=== PATIENT | male | born 1970 | race Hispanic/Latino ===

== ENCOUNTER 2021-04-25 18:56 | Inpatient (IN) | payer BC, OTHER ==
[~2021-04-25 18:56] MED LIST: Iopamidol-370 76% 500 ML 1 ML ONE
[2021-04-25 19:31] LABS: #Monocytes 1.4 thou/uL (0.11-0.59); #Neutrophils 9.1 thou/uL (1.40-6.50); %Basophils 0.1 % (0.0-1.0); %Eosinophils 0.1 % (0.0-10.0); %Lymphocytes 8.7 % (21.0-51.0); %Neutrophils 79.1 % (42.0-75.0); Hemoglobin 16.6 g/dL (14.0-18.0); Mean Corpuscular Hemoglobin 33.3 pg (27.0-31.0); Mean Corpuscular Volume 98.1 fL (78.0-98.0); Mean Platelet Volume 9.4 fL (7.4-10.4); Platelet Count 106 thou/uL (130-400); RBC Distribution Width 12.6 % (11.5-14.5); Red Blood Cell (RBC) Count 4.97 mill/uL (4.70-6.10); White Blood Cell (WBC) Count 11.5 thou/uL (4.8-10.8)
[2021-04-25 19:48] LABS: ALT (SGPT) 75 U/L (8-55); AST (SGOT) 34 U/L (5-34); Albumin 4.1 g/dL (3.5-5.0); Alkaline Phosphatase 93 U/L (40-110); Anion Gap 12 mmol/L (10-20); BUN (Urea Nitrogen) 9 mg/dL (8.4-25.7); Calc. Creatinine Clearance 0 mL/min (70-130); Calcium 9.1 mg/dL (7.8-10.44); Carbon Dioxide 28 mmol/L (22-29); Chloride 99 mmol/L (98-107); Globulin 3.2 g/dL (2.4-3.5); Glucose 117 mg/dL (70-105); Lipase 10 U/L (8-78); Potassium 3.8 mmol/L (3.5-5.1); Protein, Total 7.3 g/dL (6.0-8.3); Sodium 135 mmol/L (136-145)
[2021-04-25] MEDS ORDERED: Ondansetron PF 4 MG/2 ML Vial ONE (20:13)
[2021-04-25] MEDS ORDERED: Piperacillin/Tazobactam 3.375 GM VIAL ONE (20:13)
[2021-04-25] MEDS ORDERED: Morphine 4 MG/ML VIAL ONE ×2 (20:13→23:49)
[2021-04-25 22:08] LABS: ALT (SGPT) 73 U/L (8-55); AST (SGOT) 34 U/L (5-34); Alkaline Phosphatase 90 U/L (40-110); Bilirubin, Direct 1.1 mg/dL (0.1-0.3); Bilirubin, Total 3.8 mg/dL (0.2-1.2); Protein, Total 7.8 g/dL (6.0-8.3)
[2021-04-25 23:25] LABS: Lactic Acid 0.8 mmol/L (0.5-2.2)
[2021-04-25] MEDS ORDERED: Ketorolac Tromethamine 30 MG/ML VIAL IVP SCH (23:45)
[2021-04-25] MEDS ORDERED: Morphine 4 MG/ML VIAL SLOW IVP PRN ×2 (23:45)
[2021-04-25] MEDS ORDERED: hydrALAZINE 20 MG/ML VIAL SLOW IVP PRN (23:45)
[2021-04-25] MEDS ORDERED: Ondansetron PF 4 MG/2 ML Vial IVP PRN (23:45)
[2021-04-25] MEDS ORDERED: Ondansetron ODT 4 MG TAB PO PRN (23:45)
[2021-04-26] MEDS ORDERED: Enoxaparin Sodium 40 MG/0.4 ML SYRINGE SC SCH ×2 (00:15→21:00)
[2021-04-26 00:26] LABS: ALT (SGPT) 62 U/L (8-55); AST (SGOT) 31 U/L (5-34); Albumin 3.5 g/dL (3.5-5.0); Alkaline Phosphatase 88 U/L (40-110); Anion Gap 11 mmol/L (10-20); BUN (Urea Nitrogen) 10 mg/dL (8.4-25.7); Bilirubin, Total 5.1 mg/dL (0.2-1.2); Calc. Creatinine Clearance 0 mL/min (70-130); Calcium 8.4 mg/dL (7.8-10.44); Carbon Dioxide 25 mmol/L (22-29); Chloride 104 mmol/L (98-107); Globulin 2.9 g/dL (2.4-3.5); Glucose 106 mg/dL (70-105); Potassium 4.1 mmol/L (3.5-5.1); Protein, Total 6.4 g/dL (6.0-8.3); Sodium 136 mmol/L (136-145)
[2021-04-26] MEDS: Acetaminophen 500 MG TAB PO PRN ×2 (00:30→18:02)
[2021-04-26] MEDS: Ketorolac Tromethamine 30 MG/ML VIAL IVP PRN ×3 (00:31→19:40)
[2021-04-26] MEDS: Sodium Chloride 0.9% 1,000 ML IV SCH ×2 (00:35→09:47)
[2021-04-26 01:22] VITALS: BMI 33.2
[2021-04-26 03:08] LABS: SARS-CoV-2 NAA Rapid Test Not Detected (NotDetected)
[2021-04-26 06:18] LABS: #Monocytes 1.2 thou/uL (0.11-0.59); #Neutrophils 9.4 thou/uL (1.40-6.50); %Basophils 0.2 % (0.0-1.0); %Eosinophils 0.1 % (0.0-10.0); %Lymphocytes 8.5 % (21.0-51.0); %Monocytes 10.3 % (0.0-10.0); %Neutrophils 80.9 % (42.0-75.0); Hemoglobin 13.8 g/dL (14.0-18.0); Mean Corpuscular HGB CONC 33.2 g/dL (32.0-36.0); Mean Corpuscular Hemoglobin 32.7 pg (27.0-31.0); Mean Corpuscular Volume 98.5 fL (78.0-98.0); Platelet Count 84 thou/uL (130-400); RBC Distribution Width 12.7 % (11.5-14.5); Red Blood Cell (RBC) Count 4.21 mill/uL (4.70-6.10); White Blood Cell (WBC) Count 11.6 thou/uL (4.8-10.8)
[2021-04-26 06:33] LABS: ALT (SGPT) 52 U/L (8-55); AST (SGOT) 26 U/L (5-34); Albumin 3.1 g/dL (3.5-5.0); Alkaline Phosphatase 79 U/L (40-110); Anion Gap 10 mmol/L (10-20); BUN (Urea Nitrogen) 12 mg/dL (8.4-25.7); Bilirubin, Total 4.7 mg/dL (0.2-1.2); Calc. Creatinine Clearance 123 mL/min (70-130); Calcium 8.1 mg/dL (7.8-10.44); Carbon Dioxide 26 mmol/L (22-29); Chloride 105 mmol/L (98-107); Globulin 2.5 g/dL (2.4-3.5); Glucose 87 mg/dL (70-105); Potassium 3.9 mmol/L (3.5-5.1); Protein, Total 5.6 g/dL (6.0-8.3); Sodium 137 mmol/L (136-145)
[2021-04-26] MEDS ORDERED: Famotidine/PF 20 mg/2ml Vial SLOW IVP SCH (09:00)
[2021-04-26] MEDS ORDERED: Famotidine 20 MG TAB PO SCH (09:00)
[2021-04-26] MEDS ORDERED: Bupivacaine 0.25% HCL 30 ML VIAL ONE (12:02)
[2021-04-26] MEDS ORDERED: Lidocaine 1% w/Epinephrine 1:100K 20 ML VIAL ONE (12:02)
[2021-04-26] MEDS ORDERED: Iothalamate Meglumine 60% 50 ML VIAL FS ONE (12:04)
[2021-04-26] MEDS ORDERED: Fentanyl 100 MCG/2 ML VIAL ONE ×2 (12:26→14:09)
[2021-04-26] MEDS ORDERED: Midazolam HCl 2 mg/2 ml Vial ONE (12:26)
[2021-04-26] MEDS ORDERED: Lidocaine 1% PF 5 ML VIAL ONE (12:27)
[2021-04-26] MEDS ORDERED: PROPOFOL 200 MG/20 ML VIAL ONE (12:27)
[2021-04-26] MEDS ORDERED: Succinylcholine 200 MG/10 ml SYRINGE FS ONE (12:27)
[2021-04-26] MEDS ORDERED: Glycopyrrolate 0.2 MG/ML 5 ML SYRINGE ONE (12:27)
[2021-04-26] MEDS ORDERED: Ondansetron PF 4 MG/2 ML Vial ONE (12:27)
[2021-04-26] MEDS ORDERED: Dexamethasone 20 MG/5 ML VIAL ONE (12:27)
[2021-04-26] MEDS ORDERED: Meperidine HCl/PF 25 MG/ML VIAL SLOW IVP PRN ×2 (13:02)
[2021-04-26] MEDS ORDERED: Ondansetron HCl/PF 4 MG/2 ML Vial IVP PRN (13:02)
[2021-04-26] MEDS ORDERED: HYDROmorphone 2 MG/ML VIAL SLOW IVP PRN (13:02)
[2021-04-26] MEDS ORDERED: Promethazine HCl 25 MG/ML VIAL IM PRN (13:02)
[2021-04-26] MEDS ORDERED: Promethazine HCl 25 MG/ML VIAL IVPB PRN (13:02)
[2021-04-26] MEDS ORDERED: Ibuprofen 600 MG TAB PO PRN (13:54)
[2021-04-26] MEDS ORDERED: traMADol HCl 50 MG TAB PO PRN (13:54)
[2021-04-27 07:44] VITALS: BP 108/70; TEMP 98.6
[2021-04-27] MEDS ORDERED: Aspirin 81 mg Enteric Coated Tablet PO SCH (09:00)
== END 2021-04-27 10:30 | disposition home or self-care (01) | DRG 854 ==
LOC: ERS 18:56 → SURG A 22:24
PROVIDERS: ADMIT Specialist; ATTEND Specialist
PROC: 0FT44ZZ Resection of Gallbladder, Percutaneous Endoscopic Approach (ICD-10-PCS; principal; 2021-04-26)
PROC: BF121ZZ Fluoroscopy of Gallbladder using Low Osmolar Contrast (ICD-10-PCS; 2021-04-26)
DX: A41.9 Sepsis, unspecified organism (principal); K80.12 Calculus of gallbladder with acute and chronic cholecystitis without obstruction; R65.20 Severe sepsis without septic shock
CPT/HCPCS: 36415; 47531; 74177; 80053; 83605; 83690; 84484; 85025; 87040; 88304; 93005; J1100; J1610; J1650; J1885; J1956; J2250; J2270; J2405; J2543; J2704; J3010; J7050; Q9961; Q9967; S0020; U0002

== ENCOUNTER 2024-01-13 09:51 | Outpatient (CLI) | payer OTHER ==
[2024-01-13] MEDS ORDERED: [UNRECOGNIZED DRUG - OTHER] ONE (10:05)
== END 2024-01-13 09:52 | disposition home or self-care (01) ==
LOC: RAD 09:51
PROVIDERS: ATTEND Internal Medicine Gastroenterology
DX: Q43.8 Other specified congenital malformations of intestine (principal); Z86.010 Personal history of colon polyps
CPT/HCPCS: 74280